=== PATIENT | female | born 1970 | race Caucasian/White ===

== ENCOUNTER 2016-09-18 06:00 | Day surgery (SDC) | payer OTHER ==
[2016-09-12 11:10] VITALS: BMI 28.8
[2016-09-18] MEDS ORDERED: LIDOCAINE 1%-EPI 1:100,000 30 ML MDV IJ ONE (07:16)
[2016-09-18] MEDS ORDERED: BUPIVACAINE HCL 0.25% 125 MG/50 ML VIAL ONE (07:16)
[2016-09-18] MEDS ORDERED: PROPOFOL 20 ML ONE ×3 (07:24)
[2016-09-18] MEDS ORDERED: SUCCINYLCHOLINE CHLORIDE 200 MG/10 ML VIAL ONE (07:24)
[2016-09-18] MEDS ORDERED: PHENYLEPHRINE HCL 10 MG/1 ML SINGLE DOSE VIAL ONE (07:24)
[2016-09-18] MEDS ORDERED: ePHEDrine SULFATE 50 MG/1 ML AMPULE ONE (07:24)
[2016-09-18] MEDS ORDERED: MIDAZOLAM HCL 2 MG/2 ML SINGLE DOSE VIAL ONE ×2 (07:25)
[2016-09-18] MEDS ORDERED: ONDANSETRON 4 MG/2 ML VIAL ONE (08:07)
[2016-09-18] MEDS ORDERED: LIDOCAINE HCL/PF 2% SDV 5ML VIAL ONE (08:07)
[2016-09-18] MEDS ORDERED: LIDOCAINE HCL 4% TOPICAL SOLN (50 ML/BOTTLE) ONE (08:07)
[2016-09-18] MEDS ORDERED: SODIUM CHLORIDE 0.9% P/F 10 ML VIAL IJ ONE (08:07)
[2016-09-18] MEDS ORDERED: ceFAZolin SODIUM 1 GM VIAL ONE (08:07)
[2016-09-18] MEDS ORDERED: LIDOCAINE HCL 2% (50ML VIAL) INF ONE (09:00)
[2016-09-18] MEDS ORDERED: oxyCODONE HCL 5 MG TABLET PO PRN (11:26)
[2016-09-18] MEDS ORDERED: ONDANSETRON 4 MG/2 ML VIAL IVPUSH PRN (11:26)
[2016-09-18] MEDS ORDERED: LACTATED RINGERS SOLUTION 1,000 ML IV SCH (11:30)
--- NOTE | 2016-09-18 11:34 | OP ---
DATE OF OPERATION: 09/18/2016 PREOPERATIVE DIAGNOSIS: Right carpal tunnel syndrome. POSTOPERATIVE DIAGNOSIS: Right carpal tunnel syndrome. OPERATIVE PROCEDURE: Right carpal tunnel release. SURGEON: Cesar Mcdonnell MD ANESTHESIA: Local with sedation. COMPLICATIONS: None. ESTIMATED BLOOD LOSS: Minimal. INDICATIONS FOR PROCEDURE: The patient is a 45-year-old female with the above findings, indicated for operative treatment. The risks, benefits, and alternatives were discussed with the patient at length, and proper informed consent was obtained. PROCEDURE: After proper identification of the patient and the correct operative site, the patient was brought to the operating room and placed supine on the table with prominences well padded. Sedation was given by the anesthesiologist, local anesthesia was given with 2% lidocaine. Right upper extremity was prepped and draped in the usual sterile fashion. Well-padded tourniquet was placed with a sterile prep. Esmarch bandage used to exsanguinate the right upper extremity. Tourniquet inflated to 250 mmHg. Longitudinal incision made over the proximal aspect of the palm. Incision was taken sharply through the skin. Blunt and sharp dissection was performed through the subcutaneous tissues. Palmar fascia was divided longitudinally. The transverse carpal ligament along with the distal 4 cm of the antebrachial fascia was divided longitudinally under direct visualization with loupe magnification. This provided complete release of the median nerve at the wrist. Wound was irrigated with saline and repaired with 5-0 nylon suture. Sterile dressings were applied. The patient was reversed from sedation and brought to the recovery room in stable condition having tolerated the procedure well. Mike HOFF/[id number]
[2016-09-18 13:48] VITALS: BP 110/65; PULSE 71; TEMP 98.2
== END 2016-09-18 10:35 | disposition home or self-care (01) ==
LOC: FASU 06:00
PROVIDERS: ATTEND Orthopaedic Surgery Hand Surgery
PROC: 01N50ZZ Release Median Nerve, Open Approach (ICD-10-PCS; principal; 2016-09-18 08:30)
DX: G56.01 Carpal tunnel syndrome, right upper limb (principal)
CPT/HCPCS: 94760

== ENCOUNTER 2021-11-29 07:27 | Day surgery (SDC) | payer BC, OTHER ==
[2021-11-28 10:16] VITALS: BMI 27.8
[2021-11-29 09:51] VITALS: TEMP 98.1
[2021-11-29 10:15] VITALS: BP 115/72; PULSE 61
== END 2021-11-29 10:25 | disposition home or self-care (01) ==
LOC: FASU-ENDO 07:27
PROVIDERS: ATTEND Internal Medicine Gastroenterology
PROC: 0DB98ZX Excision of Duodenum, Via Natural or Artificial Opening Endoscopic, Diagnostic (ICD-10-PCS; 2021-11-29)
PROC: 0DB68ZX Excision of Stomach, Via Natural or Artificial Opening Endoscopic, Diagnostic (ICD-10-PCS; 2021-11-29)
PROC: 0DJD8ZZ Inspection of Lower Intestinal Tract, Via Natural or Artificial Opening Endoscopic (ICD-10-PCS; principal; 2021-11-29 09:20)
DX: Z12.11 Encounter for screening for malignant neoplasm of colon (principal); D12.5 Benign neoplasm of sigmoid colon; K29.50 Unspecified chronic gastritis without bleeding; B96.81 Helicobacter pylori [H. pylori] as the cause of diseases classified elsewhere; R63.4 Abnormal weight loss
CPT/HCPCS: 43239; G0121; 82962; 88305-TC; 88342-TC